=== PATIENT | male | born 1960 | race Caucasian/White ===

== ENCOUNTER 2016-05-28 16:15 | Emergency (ER) | payer BC | END 2016-05-28 19:21 | disposition left against medical advice (07) | LOC: ER 16:15 | DX: Z53.21 Procedure and treatment not carried out due to patient leaving prior to being seen by health care provider (principal) ==

== ENCOUNTER 2016-05-29 09:53 | Emergency (ER) | payer BC ==
[2016-05-29] MEDS ORDERED: KETOROLAC 60 MG/2 ML VIAL IM ONE (10:35)
== END 2016-05-29 12:00 | disposition home or self-care (01) ==
LOC: FASTR 09:53
DX: S39.012A Strain of muscle, fascia and tendon of lower back, initial encounter (principal); M51.16 Intervertebral disc disorders with radiculopathy, lumbar region; F17.210 Nicotine dependence, cigarettes, uncomplicated
CPT/HCPCS: 72100; 96372